=== PATIENT | female | born 1950 | race Caucasian/White ===

== ENCOUNTER 2024-03-14 15:16 | Outpatient (CLI) | payer BC, SELFPAY | END 2024-03-14 15:17 | disposition home or self-care (01) | PROVIDERS: PCP Family Medicine; Visit Provider Family Medicine | DX: R53.83 Other fatigue (principal); E78.00 Pure hypercholesterolemia, unspecified; E11.9 Type 2 diabetes mellitus without complications; E66.01 Morbid (severe) obesity due to excess calories; I10 Essential (primary) hypertension; F32.A Depression, unspecified; G89.4 Chronic pain syndrome; M85.80 Other specified disorders of bone density and structure, unspecified site; K92.1 Melena | CPT/HCPCS: 80053; 80061; 82306; 82607; 82728; 84443 ==

== ENCOUNTER 2024-05-25 09:15 | Outpatient (RCR) | payer MEDICARE, SELFPAY ==
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
== END 2024-09-22 23:59 | disposition home or self-care (01) ==
PROVIDERS: PCP Family Medicine; Visit Provider Family Medicine
DX: R26.89 Other abnormalities of gait and mobility (principal); Z51.89 Encounter for other specified aftercare
CPT/HCPCS: 97110; 97112; 97116; 97162